=== PATIENT | male | born 1995 | race Caucasian/White ===

== ENCOUNTER 2021-08-29 11:32 | Emergency (ER) | payer OTHER, MEDICARE, MEDICAID ==
[~2021-08-29] VITALS: Ht 172.7 cm; Wt 56.8 kg
[2021-08-29 11:41] VITALS: TEMP 97.5
[2021-08-29 15:48] VITALS: BP 112/61; PULSE 62
== END 2021-08-29 16:07 | disposition home or self-care (01) ==
LOC: COL.ER 11:32
DX: K94.23 Gastrostomy malfunction (principal)
CPT/HCPCS: 32245

== ENCOUNTER 2022-01-30 02:21 | Inpatient (IN) | payer OTHER, MEDICARE, MEDICAID ==
[~2022-01-30] VITALS: Ht 177.8 cm; Wt 50.0 kg
[2022-01-30 03:44] LABS: COLLECTION METHOD IN
[2022-01-30 03:47] LABS: BASO # 0.1 K/mm3 (0.0-0.2); BASO % 0.5 % (0.0-2.0); EOS # 2.1 K/mm3 (0.0-0.7); EOS % 16.4 % (0.0-4.0); GRAN # 7.2 K/mm3 (1.4-6.5); GRAN % 56.6 % (42.2-75.2); HEMATOCRIT 51.2 % (42.0-52.0); HEMOGLOBIN 17.4 g/dl (13.5-18.0); LYMPH # 2.8 K/mm3 (1.2-3.4); LYMPH % 21.8 % (20.0-51.0); MEAN CELL VOLUME 89 fl (80.0-100.0); MEAN CORPUSCULAR HEMOGLOBIN 30 pg (27-31); MEAN CORPUSCULAR HGB CONC 34 g/dl (33.0-37.0); MEAN PLATELET VOLUME 11.8 fl (7.4-10.4); MONO # 0.6 K/mm3 (0.1-0.6); MONO % 4.5 % (1.7-9.3); PLATELET COUNT 193 K/mm3 (130-400); RED BLOOD COUNT 5.74 M/mm3 (4.20-5.60); REDCELL DISTRIBUTION WIDTH-CV 12.7 % (11.5-14.5)
[2022-01-30 03:48] LABS: MUCOUS Present (NOT PRESENT); PH 5 (5-8); URINE APPEARANCE Hazy (CLEAR/HAZY); URINE BACTERIA None Seen /hpf (NONE SEEN); URINE BLOOD Negative (NEGATIVE); URINE COLOR Yellow (YELLOW); URINE GLUCOSE Negative (NEGATIVE); URINE KETONE Trace (NEGATIVE); URINE NITRATE Negative (NEGATIVE); URINE PROTEIN(semi-quant) Negative (NEGATIVE)
[2022-01-30 03:55] LABS: ALBUMIN 3.8 gm/dL (3.5-5.0); BILIRUBIN,TOTAL 0.7 mg/dL (0.2-1.2); CALCIUM 9.3 mg/dL (8.4-10.2); CREATININE, serum 0.68 mg/dL (0.72-1.25); POTASSIUM 4.2 mmol/L (3.5-4.5); TOTAL PROTEIN 6.7 gm/dL (6.2-8.1)
[2022-01-30] MEDS ORDERED: PREVACID SOLUTA30 M2 PEG (06:35)
[2022-01-30] MEDS ORDERED: ASPIRIN 81M81 MG/TA2 PEG (06:35)
[2022-01-30] MEDS ORDERED: ZOLOFT 50MG50 MG PEG (06:35)
[2022-01-30 17:10] VITALS: BP 104/86; PULSE 59; TEMP 98.3
--- NOTE | 2022-01-30 20:39 | NUR ---
TX GIVEN VIA MASK, TOLERATED WELL. FAMILY X 1 AT BEDSIDE. FAMILY REQUESTS THAT I DO NOT WAKE HIM FOR TXS IF SLEEPING AT THE 0200 TX TIME.
[2022-01-30 21:25] VITALS: BP 125/83; PULSE 81; TEMP 97.6
--- NOTE | 2022-01-30 22:20 | NUR ---
Patient assessed around 1999. Patient awake. Mom in room. Patient able to answer yes and no questions using eyes and looking at hands. Mom assists with communication and very helpful in patient's cares. Given water flush via peg tube, HOB elevated. No emesis so far this shift. No questions, needs, or concerns at this time. Encouraged mom to call with any needs or concerns.
[2022-01-31] VITALS (7 sets, daily range): BP systolic 106–136; BP diastolic 48–69; PULSE 50–84; TEMP 97.7–98.3
--- NOTE | 2022-01-31 04:00 | NUR ---
Patient has positive blood cultures. Called to [facility]RISTOP[facility] Eason. New order for repeat blood cultures. No change in ABX at this time. Updated patient's mom and all questions answered.
--- NOTE | 2022-01-31 05:10 | NUR ---
Mom remains at bedside. Patient has tolerated the 200 ml water flushes this shift. Voices no questions, needs, or concerns at this time. In bed with call light within reach.
[2022-01-31 08:53] LABS: HEMATOCRIT 38.8 % (42.0-52.0); MEAN CELL VOLUME 92 fl (80.0-100.0); MEAN CORPUSCULAR HGB CONC 33 g/dl (33.0-37.0); MEAN PLATELET VOLUME 11.2 fl (7.4-10.4); PLATELET COUNT 142 K/mm3 (130-400); RED BLOOD COUNT 4.23 M/mm3 (4.20-5.60)
[2022-01-31 08:56] LABS: HEMOGLOBIN 12.9 g/dl (13.5-18.0); MEAN CORPUSCULAR HEMOGLOBIN 30 pg (27-31)
[2022-01-31 09:08] LABS: CALCIUM 8.3 mg/dL (8.4-10.2); CREATININE, serum 0.53 mg/dL (0.72-1.25); MAGNESIUM 1.7 mg/dL (1.6-2.6); POTASSIUM 3.8 mmol/L (3.5-4.5)
[2022-01-31 09:18] LABS: EOSINOPHIL 25 % (0-4); LYMPHOCYTE 42 % (20.0-51.0); NEUTROPHILS 30 % (42.0-75.2)
[2022-01-31 09:19] LABS: PLATELET ESTIMATE NORMAL (NORMAL)
--- NOTE | 2022-01-31 09:49 | NUR ---
ANDREA met with the patient and his mother, Jessica Castillo (ph#[phone]), to discuss discharge plan. The patient has an anoxic brain injury and is only able to communicate via hand signals to yes or no questions. The patient lives in [place] with his mother, step father, and sister (Srikanth). His mother states that the patient is completely bedbound and dependent with ADLs. He has a wheelchair and they just ordered a [employer] wheelchair for outings. The patient's family is his primary caregivers. They provide him with spongebaths. Jessica states that insurance did approve him for 33 hours of private duty caregivers, but they have had a difficult time finding people for these hours. She is hopeful with the [employer] students coming back soon, they will be able to find someone. The patient's PCP is Dr. Kena Villagran and they receive his medications from [facility]. SW inquired if the patient has a guardian/conservator. Jessica states that she is the patient's conservator and she has the paperwork at home. She states that Dr. Villagran's office may have a copy. Jessica states that the plan is for the patient to return back home with her and family upon discharge. ANDREA contacted Sienna, social work specialist, with Dr. Villagran. Sienna states that the patient had the brain injury in [place]. [place] has different laws then [place] and they do not require convervatorship. They only note guardians for minors and the patient was over the age of 20 when he had the brain injury. Sienna states that she does have the documentation from [place] and will fax it to the medical unit. Sienna states that she encouraged the patient's mother to speak to a doll wigs hackler in [place] to get things completed and a guardianship established here. Discharge plan: home with family*
--- NOTE | 2022-01-31 11:41 | NUR ---
PT RESTING IN BED. MORNING MEDICATIONS GIVEN VIA PEG TUBE, TUBE FLUSHED PER ORDERS. IVF INFUSING. MIDLINE IN PLACE, FLUSHES WELL WITH NO BLOOD RETURN. PT NONVERBAL, MOTHER AT BEDSIDE. WILL CONTINUE TO MONITOR.
--- NOTE | 2022-01-31 21:18 | NUR ---
PT FAMILY PRESENT AT BEDSIDE THEY PERFORM CARE AT HOME AND ADVOCATE FOR PT NEEDS. PT UNABLE TO CALL DUE TO CONTRACTED UPPER EXTREMITIES AND COMMUNICATION DIFFICULTY. NAUSEA MEDICATION ADMINISTERED PER PT REQUEST (SEE MAR) AND NO FURTHER CONCERNS OR COMPLAINTS AT THIS TIME. STERILE WATER PROVIDED TO FAMILY AT THEIR REQUEST TO PERFORM PEG FLUSH. CONDOM CATHETER IN PLACE TO PROTECT SKIN BREAKDOWN FROM MOISTURE DAMAGE. WILL CONTINUE TO MONITOR.
[2022-02-01 02:46] VITALS: BP 108/57; PULSE 48; TEMP 97.7
--- NOTE | 2022-02-01 08:00 | NUR ---
Patient sleeping in bed, mother at the bedside. Mother requesting that the assessment and vitals be done at another time and that she will notify nursing staff. IV CDI, fluids infusing. Peg tube intact. External catheter intact. Patient positioned for comfort, family assist with daily cares. Call light within reach
[2022-02-01 11:38] VITALS: BP 121/64; PULSE 58; TEMP 97
--- NOTE | 2022-02-01 12:33 | NUR ---
Initial visit; Patient's Mom thanked Site Medical Director for looking in on them and states everything is good today. Site Medical Director will keep Kendrick in her prayers.
[2022-02-01 15:29] VITALS: BP 98/60; PULSE 59; TEMP 97.6
--- NOTE | 2022-02-01 17:59 | NUR ---
Patient laying in bed watching Ipad with mother in the room. Alert and can answer some questions while nodding head. VSS. IV CDI, fluids infusing. External del rio intact. Mother assist with daily cares. Call light within reach
--- NOTE | 2022-02-01 19:00 | NUR ---
THE PATIENT IS LAYING IN BED UPON ENTRY. MOTHER IS AT BEDSIDE. DENIES ANY NEEDS AT THIS TIME WILL RETURN FOR ASSESSMENT AND EVENING MEDICAITONS AT THIS TIME.
[2022-02-01 19:22] VITALS: BP 155/62; PULSE 76; TEMP 97.8
[2022-02-01 23:29] VITALS: BP 133/84; PULSE 56; TEMP 98.2
[2022-02-02 03:38] VITALS: BP 117/71; PULSE 58; TEMP 97.4
[2022-02-02 07:22] VITALS: BP 129/65; PULSE 46; TEMP 98.2
--- NOTE | 2022-02-02 08:00 | NUR ---
Patient sleeping in bed, mother at the bedside. VSS. IV CDI, fluids infusing. External catheter intact. Peg tube intact. Mother assess with daily cares. Call light within reach
[2022-02-02 11:17] VITALS: BP 122/61; PULSE 45; TEMP 98.2
[2022-02-02 15:08] VITALS: BP 115/61; PULSE 48; TEMP 98
--- NOTE | 2022-02-02 17:24 | NUR ---
Air mattress placed on patients bed per request from the mother. Patient alert and nonverbal. VSS. IV CDI, fluids infusing. Patient positioned for comfort. Family assisting with bedside care. External del rio intact. Call light within reach
[2022-02-02 20:01] VITALS: BP 138/87; PULSE 44; TEMP 98.1
[2022-02-02 23:58] VITALS: BP 142/72; PULSE 44; TEMP 98.2
[2022-02-03 03:53] VITALS: BP 98/44; PULSE 40; TEMP 97.5
--- NOTE | 2022-02-03 04:00 | NUR ---
AT THIS HOUR THE PATIENT'S POC WBG WAS 68. THE PATIENT'S MOTHER WANTED TO GIVE THE PATIENT A SNACK INSTEAD OF THE IV D50.
--- NOTE | 2022-02-03 05:30 | NUR ---
AFTER THE PATIENT'S MOTHER GAVE THE PATIENT A SNACK, THE REPEAT BLOOD SUGAR WAS 102. WILL CONTINUE TO MONITOR.
[2022-02-03 09:30] VITALS: BP 101/50; PULSE 55; TEMP 96.5
--- NOTE | 2022-02-03 14:43 | NUR ---
REMOVED PTS MIDLINE, PT TOLERATED WELL, CATH WAS FULLY INTACT @ 15CM 2X2 AND TAGEDERM APPLIED TO SITE, NO ISSUES AFTER REMOVAL
--- NOTE | 2022-02-03 14:53 | NUR ---
DISCHARGE DISCUSSED WITH FAMILY, ALL QUESTIONS AND CONCERNS WERE ADDRESSED, WATING FOR MOM AND PTS WHEELCHAIR FOR DISCHARGE, MIDLINE WAS REMOVED WITHOUT COMPLICATIONS
== END 2022-02-03 15:04 | disposition home or self-care (01) | DRG 391 ==
LOC: COL.ER 02:21 → MEDICAL 09:27
PROVIDERS: Emergency Medicine Emergency Medical Services; ADMIT Internal Medicine
PROC: 05HY33Z Insertion of Infusion Device into Upper Vein, Percutaneous Approach (ICD-10-PCS; principal; 2022-01-30)
DX: K52.9 Noninfective gastroenteritis and colitis, unspecified (principal); J96.01 Acute respiratory failure with hypoxia; G93.1 Anoxic brain damage, not elsewhere classified; Z20.822 Contact with and (suspected) exposure to COVID-19; D72.829 Elevated white blood cell count, unspecified; I95.9 Hypotension, unspecified; G31.84 Mild cognitive impairment of uncertain or unknown etiology; R13.10 Dysphagia, unspecified; Z99.81 Dependence on supplemental oxygen; Z79.82 Long term (current) use of aspirin; Z93.1 Gastrostomy status; Z23 Encounter for immunization
CPT/HCPCS: 99239; C1751; J1650; J2405; J2543; J2550; J7030

== ENCOUNTER → 2022-02-20 | Outpatient (CLI) | payer OTHER, MEDICARE, MEDICAID ==
[~2022-02-20] MED LIST: ASPIRIN 81M81 MG/TA2 PEG; PREVACID SOLUTA30 M2 PEG; ZOLOFT 50MG50 MG PEG
== END ==
LOC: COL.RAD 12:20
DX: G93.1 Anoxic brain damage, not elsewhere classified (principal)